=== PATIENT | female | born 1980 | race Caucasian/White ===

== ENCOUNTER 2017-09-25 09:05 | Outpatient (CLI) | payer OTHER ==
[2017-09-25 17:59] LABS: BASOPHILS # (AUTO) 0.1 10^3/uL (0.0-0.1); BASOPHILS % (AUTO) 1.6 %; EOSINOPHILS # (AUTO) 0.1 10^3/uL (0.0-0.7); HGB - HEMOGLOBIN 11.9 g/dL (12.0-16.0); LYMPHOCYTES # (AUTO) 1.8 10^3/uL (1.5-3.5); LYMPHOCYTES % (AUTO) 30.2 %; MEAN CORPUSCULAR HEMOGLOBIN 28.6 pg (27.0-31.0); MEAN CORPUSCULAR HGB CONC 32.4 g/dL (32.0-36.0); MEAN CORPUSCULAR VOLUME 88.2 fL (81.0-99.0); MEAN PLATELET VOLUME 9.2 fL (7.9-10.8); MONOCYTES # (AUTO) 0.4 10^3/uL (0.0-1.0); MONOCYTES % (AUTO) 6.4 %; NEUTROPHILS # (AUTO) 3.7 10^3/uL (1.5-6.6); NEUTROPHILS % (AUTO) 60.8 %; PLT - PLATELET COUNT 197 10^3/uL (130-450); RED BLOOD COUNT 4.18 10^6/uL (4.20-5.40); RED CELL DISTRIBUTION WIDTH 14.9 % (12.0-15.0); WHITE BLOOD COUNT 6.1 x10^3/uL (4.8-10.8)
[2017-09-25 18:24] LABS: T4 (THYROXINE) 7.15 ug/dL (6.09-12.23)
[2017-09-25 18:26] LABS: THYROID STIMULATING HORMONE 2.01 uIU/mL (0.34-5.60)
[2017-09-25 18:32] LABS: FERRITIN 22.2 ng/mL (11.0-306.8)
[2017-09-25 18:57] LABS: % IRON SATURATION 16 % (20-50); ALBUMIN 4.3 g/dL (3.2-5.5); ALBUMIN/GLOBULIN RATIO 1.5 (1.0-2.2); ALKALINE PHOSPHATASE 50 IU/L (42-121); ALT ALANINE AMINOTRANSFERASE 23 IU/L (10-60); AST ASPARTATE AMINOTRANSFERASE 22 IU/L (10-42); BILIRUBIN,TOTAL 2.1 mg/dL (0.2-1.0); BUN - BLOOD UREA NITROGEN 14 mg/dL (6-20); CALCIUM 8.7 mg/dL (8.5-10.3); CARBON DIOXIDE - CO2 28 mmol/L (21-32); CHLORIDE 104 mmol/L (101-111); CHOL/HDL RATIO 2.1 (<4.4); CHOLESTEROL 159 mg/dL; CREATININE 0.6 mg/dL (0.4-1.0); GFR - MDRD 114 (>89); GLUCOSE 90 mg/dL (70-100); HDL CHOLESTEROL 74 mg/dL; IRON 65 ug/dL (28-170); SODIUM 137 mmol/L (135-145); TOTAL IRON BINDING CAPACITY 395 ug/dL (250-450); TOTAL PROTEIN 7.1 g/dL (6.7-8.2); TRANSFERRIN 282 mg/dL (192-382)
[2017-09-25 19:47] LABS: LDL CHOLESTEROL,DIRECT 68 mg/dL; LDLD/HDL RATIO 0.9 (<4.4)
== END 2017-09-25 09:06 | disposition home or self-care (01) ==
LOC: LAB.F 09:05
PROVIDERS: ATTEND Nurse Practitioner Family
DX: Z00.00 Encounter for general adult medical examination without abnormal findings (principal); E55.9 Vitamin D deficiency, unspecified; E78.5 Hyperlipidemia, unspecified; N92.0 Excessive and frequent menstruation with regular cycle; R53.83 Other fatigue
CPT/HCPCS: 36415; 80053; 80061; 82306; 82728; 83540; 83721; 84436; 84443; 84466; 84481; 85025

== ENCOUNTER 2017-10-04 15:28 | Outpatient (CLI) | payer OTHER ==
--- NOTE | 2017-10-05 09:49 | Ultrasound Report ---
PELVIC ULTRASOUND: 10/04/2017 CLINICAL INDICATION: Menorrhagia, enlarged uterus on exam. TECHNIQUE: Transabdominal pelvic ultrasound performed for global evaluation. Transvaginal pelvic ultrasound performed for detailed evaluation. Real-time scanning performed and static images obtained. FINDINGS: The uterus is anteverted, measuring 9.2 x 5.4 x 4.2 cm. The endometrial echo complex measures 9 mm. No focal myometrial lesion is seen. The right ovary measures 3.0 x 2.7 x 1.7 cm, and demonstrates a follicle. The left ovary measures 2.5 x 1.7 x 0.9 cm, and appears unremarkable. No free fluid is present. IMPRESSION: NORMAL PELVIC ULTRASOUND. TD: 10/05/2017 09:48
== END 2017-10-04 15:29 | disposition home or self-care (01) ==
LOC: DI 15:28
PROVIDERS: ATTEND Nurse Practitioner Family
DX: N85.2 Hypertrophy of uterus (principal); N92.0 Excessive and frequent menstruation with regular cycle
CPT/HCPCS: 76830; 76856

== ENCOUNTER 2017-12-13 16:45 | Emergency (ER) | payer OTHER ==
[2017-12-13 17:14] LABS: BILIRUBIN,URINE NEGATIVE (NEGATIVE); GLUCOSE, URINE (UA) NEGATIVE (NEGATIVE); KETONES,URINE (UA) NEGATIVE (NEGATIVE); LEUKOCYTE ESTERASE, URINE NEGATIVE (NEGATIVE); NITRITE,URINE NEGATIVE (NEGATIVE); OCCULT BLOOD,URINE NEGATIVE (NEGATIVE); PROTEIN,URINE NEGATIVE (NEGATIVE); UROBILINOGEN,URINE 0.2 (NORMAL) E.U./dL (NORMAL)
[2017-12-13 17:18] LABS: CLARITY,URINE CLEAR (CLEAR); HCG UR QUAL POSITIVE
--- NOTE | 2017-12-13 19:23 | ED Physician Documentation ---
PD HPI FEMALE - Stated complaint Stated Complaint: SPOTTING/CRAMPING/10 WKS PREG - Chief complaint Chief Complaint: Abd Pain - History obtained from History obtained from: Patient - History of Present Illness Timing - onset: Today (started with spotting/mild bleeding vaginally with lower abd cramping today. Seen by her tool procurement coordinator, Keli Patel, and referred to ER for futher testing/ US.) Timing - duration: Days Timing - details: Abrupt onset, Still present, Waxing and waning Associated symptoms: Vaginal bleeding, Vaginal discharge (mild clear d/c for most all of the so far.). 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 denies: Nausea, Vomiting, Diarrhea : reports: Now EGA (10). denies: Dysuria, Frequency, Discharge Skin: denies: Rash, Lesions Neurologic: denies: Focal weakness, Near syncope, Altered mental status, Headache Endocrine: denies: Easy bruising / bleeding PD PAST MEDICAL HISTORY - Past Medical History Cardiovascular: None Respiratory: None Neuro: None Endocrine/Autoimmune: None - Present Medications Home Medications: Ambulatory Orders Medication Instructions Recorded Confirmed No Known Home Medications [No 12/13/17 12/13/17 Known Home Medications] - Allergies Allergies/Adverse Reactions: Allergies Allergy/AdvReac Type Severity Reaction Status Date / Time acetaminophen [From Vicodin] Allergy Mild Nausea Verified 12/13/17 16:54 hydrocodone [From Vicodin] Allergy Mild Nausea Verified 12/13/17 16:54 PD ED PE NORMAL - Vitals Vital signs reviewed: Yes - General General: Alert and oriented X 3, No acute distress, Well developed/nourished - Neck Neck: Supple, no meningeal sign, No adenopathy - Cardiac Cardiac: RRR, No murmur - Respiratory Respiratory: Clear bilaterally - Abdomen Abdomen: Normal bowel sounds, Soft, Non tender, Non distended, No organomegaly - Female Female : Deferred - Rectal Rectal: Deferred - Back Back: No CVA TTP - Derm Derm: Normal color - Extremities Extremities: No deformity, No tenderness to palpate, Normal ROM s pain, No edema , No calf tenderness / cord - Neuro Neuro: Alert and oriented X 3, No motor deficit, Normal speech Results - Vitals Vitals: Vital Signs - 24 hr 12/13/17 12/13/17 12/13/17 16:49 21:08 21:59 Temperature 36.6 C 37.2 C Heart Rate 71 69 70 Respiratory 16 18 14 Rate Blood Pressure 115/62 99/62 107/60 O2 Saturation 100 100 98 Oxygen O2 Source Room air - Labs Labs: Laboratory Tests 12/13/17 12/13/17 12/13/17 17:00 17:00 20:45 HCG, Quant 91477.00 Urine Color YELLOW Urine Clarity CLEAR Urine pH 6.0 Ur Specific Petty <=1.005 <=1.005 Urine Protein NEGATIVE Urine Glucose (UA) NEGATIVE Urine Ketones NEGATIVE Urine Occult Blood NEGATIVE Urine Nitrite NEGATIVE Urine Bilirubin NEGATIVE Urine Urobilinogen 0.2 (NORMAL) Ur Leukocyte Esterase NEGATIVE Ur Microscopic Review NOT INDICATED Urine Culture Comments NOT INDICATED Urine HCG, Qual POSITIVE - Rads (name of study) OB U/S Radiology: Prelim report reviewed (IUP with GS size c/w 7 weeks. No free fluid. No FHR seen.), EMP read contemporaneously PD MEDICAL DECISION MAKING - ED course Complexity details: reviewed results (bedside U/S by me shows IUP about 8 weeks size without obvious FHR. Will get formal U/S. Unfortunately this showed demise with 7 week size. UA is good. Blood type ordered. ), considered differential (concern for early vs incomplete miscarriage. ), d/w patient, d/w family (spouse) - Sepsis Event Vital Signs: Vital Signs - 24 hr 12/13/17 12/13/17 12/13/17 16:49 21:08 21:59 Temperature 36.6 C 37.2 C Heart Rate 71 69 70 Respiratory 16 18 14 Rate Blood Pressure 115/62 99/62 107/60 O2 Saturation 100 100 98 Oxygen O2 Source Room air Departure - Departure Disposition: 01 Home, Self Care Clinical Impression: demise, Incomplete miscarriage Condition: Stable Record reviewed to determine appropriate education?: Yes Instructions: ED Miscarriage Incom Follow-Up: Keli Patel LMW [Physician No Access] - Comments: Drink lots of fluids. Tylenol or ibuprofen if needed for cramps. Follow-up with Keli Patel regarding the next steps to take. One option is a bit more time to see if the miscarriage completes. Concerns would be infection. Other concerns would be cramping pain or inflammation resulting. Return if you have significant bleeding, significant pain, fevers, lightheadedness or other concerns. Otherwise there are methods to try to promote dilation of the cervix and completion of the miscarriage either with medications or with procedure. Discharge Date/Time: 12/13/17 22:02
--- NOTE | 2017-12-13 21:37 | Ultrasound Report ---
Procedure Date: 12/13/2017 Accession Number: [id number] / [id number] Procedure: US - OB First Trimester CPT Code: FULL RESULT: EXAM: FIRST TRIMESTER OBSTETRIC ULTRASOUND (LESS THAN 11 WEEKS). EXAM DATE: 12/13/2017 08:43 PM. CLINICAL HISTORY: 10 weeks , spotting/cramps. LMP: 10/05/2017, EGA 9 weeks 6 days, NIURKA 07/12/2018. COMPARISONS: None. TECHNIQUE: Transabdominal and transvaginal ultrasound examination with static image documentation. Findings: Gestational Sac: Single intrauterine. Mean gestational sac diameter: 29 mm = 7 weeks 5 days. Embryo: CRL (crown-rump length) 10 mm = 7 weeks 0 days. Cardiac activity: None, no cardiac activity is seen. Yolk sac: Round echogenic focus seen within the gestational sac measuring 3.8 mm, could represent a thickened yolk sac, abnormal in appearance. Amniotic fluid: Not accurately assessed at this gestational age. Early placenta: Not visible at this gestational age. Other: 4.4 mm perigestational bleed.. MATERNAL STRUCTURES: Uterus: Retroverted. Unremarkable. Cervix: Closed. Right Ovary/Adnexa: Unremarkable. The ovary measures 2.5 x 2 cm. Left Ovary/Adnexa: Unremarkable left ovary. The ovary measures 2.3 x 1.3 cm. Left adnexal varices. Free Fluid: None. IMPRESSION: 1. Embryo demise at 7 weeks and 0 days gestational age. No cardiac activity is seen. See above. RADIA
[2017-12-13 22:00] VITALS: BP 107/60
== END 2017-12-13 22:02 | disposition home or self-care (01) ==
LOC: ED 16:45
DX: O03.4 Incomplete spontaneous abortion without complication (principal)
CPT/HCPCS: 36415; 76801; 76817; 81001; 81003; 81025; 84702; 86900; 86901; 87086; 99283

== ENCOUNTER 2018-12-18 16:20 | Outpatient (CLI) | payer BC ==
--- NOTE | 2018-12-18 18:32 | Ultrasound Report ---
Reason: 1ST TRIMESTER DATING/VIABILITY Procedure Date: 12/18/2018 Accession Number: [id number] / [id number] Procedure: US - OB First Trimester CPT Code: FULL RESULT: EXAM: FIRST TRIMESTER OBSTETRIC ULTRASOUND (Less than 11 weeks) EXAM DATE: 12/18/2018 05:10 PM. CLINICAL HISTORY: 1ST TRIMESTER DATING/VIABILITY. LMP: 10/29/2018. COMPARISONS: None. TECHNIQUE: Transabdominal ultrasound examination with static image documentation. CLINICAL DATES: EGA 7 weeks 1 day with NIURKA 08/05/2019 based on LMP. ASSESSMENT: Gestational Sac: Single intrauterine. Mean gestational sac diameter: 2.5 mm = 7 weeks 4 days. Embryo: CRL (crown-rump length) 9.5 mm = 7 weeks 0 days. Cardiac activity: 153 beats per minute. Yolk sac: 3.5 mm. Amniotic fluid: Not accurately assessed at this gestational age. Early placenta: Not visible at this gestational age. Other: Small perigestational fluid collection measuring about 1.6 x 1.0 x 1.0 cm. MATERNAL STRUCTURES: Uterus: Anteverted. Unremarkable. Cervix: Closed. Right Ovary/Adnexa: The ovary measures not visible. Left Ovary/Adnexa: The ovary measures 3.2 x 1.3 x 3.2 cm, volume 7.1 cc. Unremarkable. Small corpus luteum cyst measuring 1.4 x 1.3 x 1.7 cm. Free Fluid: None. Other: None. IMPRESSION: 1. Single viable intrauterine at EGA 7 weeks 0 days with NIURKA 08/06/2019 based on crown-rump length, which is concordant with clinical dates. 2. Assigned dating is NIURKA 08/05/2019 based on LMP. 3. Small perigestational fluid collection. RADIA The above call report findings were discussed with Dr. Patel by Dr. Shaji Vale at 06:31 PM on 12/18/2018.
== END 2018-12-18 16:21 | disposition home or self-care (01) ==
LOC: DI 16:20
PROVIDERS: ATTEND Midwife
DX: Z34.91 Encounter for supervision of normal pregnancy, unspecified, first trimester (principal)
CPT/HCPCS: 76801

== ENCOUNTER 2019-03-20 14:19 | Outpatient (CLI) | payer BC ==
--- NOTE | 2019-03-25 09:54 | Ultrasound Report ---
Reason: ANATOMIC SURVEY Procedure Date: 03/20/2019 Accession Number: [id number] / [id number] Procedure: US - OB Detailed Eval CPT Code: FULL RESULT: EXAM: COMPLETE OBSTETRICAL ULTRASOUND EXAM DATE: 03/20/2019 05:00 PM. CLINICAL HISTORY: anatomic survey. COMPARISON: 12/18/2018. TECHNIQUE: Real-time sonographic evaluation of the fetus performed by the site monitor. Multiple jewelry sales representative static images were saved for review. Transabdominal imaging only. DATING: Established EGA 20 weeks 2 days with NIURKA 08/05/2019 based on last menstrual period. EGA 20 weeks 0 days with NIURKA 08/06/2019 based on prior ultrasound. EGA 20 weeks 2 days with NIURKA 08/05/2019 based on the current ultrasound. GENERAL EVALUATION [place] . Cardiac activity: 146 bpm. movement: Visualized. Presentation: Variable Placenta: Anterior position. No evidence for previa. Umbilical cord: 3 vessel cord. Central placental cord origin. Amniotic fluid: Subjectively normal. MVP 4.0 cm. BIOMETRY Bi-Parietal Diameter (BPD): 5.04 cm, 21 weeks 2 days Head Circumference (HC): 18.6 cm, 21 weeks 0 days Abdominal Circumference (AC): 14.7 cm, 20 weeks 0 days Femur Length (FL): 3.1 cm, 19 weeks 5 days Estimated Weight: 326 g, 30 percentile. ANATOMY The intracranial structures, profile, face/nose/lips, spine, 4 chamber heart and outflow tracts, stomach, abdominal wall and cord insertion, diaphragm, kidneys, bladder, and extremities were visualized and demonstrate no abnormality. MATERNAL STRUCTURES Uterus: Unremarkable. Cervix: Long and closed. Transabdominal length 4.3 cm. Right ovary/adnexa: Unremarkable. Left ovary/adnexa: Unremarkable. Free fluid: None. IMPRESSION: 1. [place] live intrauterine with gestational age 20 weeks 2 days based on current ultrasound. 2. Estimated weight is within expected limits for assigned dating. 3. Normal anatomic survey. No anatomic abnormalities are detected at this time. RADIA ADDENDUM: 03/26/19 15:58 There was a typographical error in the initial report. In regards to ANATOMY, the following structures were not well visualized: Nuchal fold, face, nose/lips, and both lower extremities. Consider follow-up obstetrical ultrasound at clinically appropriate interval.
== END 2019-03-20 14:20 | disposition home or self-care (01) ==
LOC: DI 14:19
PROVIDERS: ATTEND Midwife
DX: Z34.92 Encounter for supervision of normal pregnancy, unspecified, second trimester (principal)
CPT/HCPCS: 76811

== ENCOUNTER 2020-07-28 13:40 | Outpatient (CLI) | payer BC ==
[2020-07-28 20:11] LABS: BASOPHILS # (AUTO) 0.1 10^3/uL (0.0-0.1); BASOPHILS % (AUTO) 0.7 %; EOSINOPHILS # (AUTO) 0.1 10^3/uL (0.0-0.7); EOSINOPHILS % (AUTO) 1.3 %; HGB - HEMOGLOBIN 13.1 g/dL (12.0-16.0); LYMPHOCYTES # (AUTO) 1.9 10^3/uL (1.5-3.5); LYMPHOCYTES % (AUTO) 28.4 %; MEAN CORPUSCULAR HEMOGLOBIN 30.7 pg (27.0-31.0); MEAN CORPUSCULAR HGB CONC 31.9 g/dL (32.0-36.0); MEAN CORPUSCULAR VOLUME 96.3 fL (81.0-99.0); MEAN PLATELET VOLUME 11.2 fL (7.9-10.8); MONOCYTES # (AUTO) 0.4 10^3/uL (0.0-1.0); MONOCYTES % (AUTO) 5.9 %; NEUTROPHILS # (AUTO) 4.3 10^3/uL (1.5-6.6); NEUTROPHILS % (AUTO) 63.6 %; PLT - PLATELET COUNT 186 10^3/uL (130-450); RED BLOOD COUNT 4.27 10^6/uL (4.20-5.40); RED CELL DISTRIBUTION WIDTH 12.6 % (12.0-15.0); WHITE BLOOD COUNT 6.8 x10^3/uL (4.8-10.8)
[2020-07-28 20:54] LABS: ALBUMIN 4.6 g/dL (3.2-5.5); ALBUMIN/GLOBULIN RATIO 1.7 (1.0-2.2); ALKALINE PHOSPHATASE 69 IU/L (42-121); ALT ALANINE AMINOTRANSFERASE 16 IU/L (10-60); AST ASPARTATE AMINOTRANSFERASE 16 IU/L (10-42); BILIRUBIN,TOTAL 2.3 mg/dL (0.2-1.0); BUN - BLOOD UREA NITROGEN 16 mg/dL (6-20); CALCIUM 9.3 mg/dL (8.5-10.3); CARBON DIOXIDE - CO2 26 mmol/L (21-32); CHLORIDE 103 mmol/L (101-111); CHOL/HDL RATIO 2.2 (<4.4); CHOLESTEROL 191 mg/dL; CREATININE 0.6 mg/dL (0.4-1.0); GLUCOSE 84 mg/dL (70-100); HDL CHOLESTEROL 87 mg/dL; TOTAL PROTEIN 7.3 g/dL (6.7-8.2)
== END 2020-07-28 13:41 | disposition home or self-care (01) ==
LOC: LAB.S 13:40
PROVIDERS: ATTEND Nurse Practitioner Family
DX: Z00.00 Encounter for general adult medical examination without abnormal findings (principal); E55.9 Vitamin D deficiency, unspecified; E78.5 Hyperlipidemia, unspecified; H00.011 Hordeolum externum right upper eyelid
CPT/HCPCS: 36415; 80053; 80061; 82306; 82728; 83721; 85025

== ENCOUNTER 2024-01-22 10:51 | Outpatient (CLI) | payer OTHER ==
--- NOTE | 2024-01-23 10:16 | Mammography Report ---
BILATERAL FIRST EVER DIGITAL SCREENING MAMMOGRAM 3D/2D WITH EXAGGERATED CC: 01/22/2024 CLINICAL: Baseline exam. Routine screening. No prior exams were available for comparison. Both breasts are heterogeneously dense, which may obscure small masses (category c / 51-75% glandular tissue). There is a focal asymmetry in the left breast at 1 o'clock posterior depth. No other significant masses, calcifications, or other findings are seen in either breast. IMPRESSION: INCOMPLETE: NEEDS ADDITIONAL IMAGING EVALUATION The focal asymmetry in the left breast is indeterminate. Additional views with possible ultrasound a re recommended. Based on the Tyrer Cuzick model (a risk assessment model) the patient's lifetime risk is 14.5% and he r 10 year risk is 2.2%. According to the ACR, ACS, and NCCN guidelines, an annual breast MRI exam deven ng with mammogram is recommended if the patient's lifetime risk is 20% or greater. This exam was interpreted at Station ID: [id number]. NOTE: For mammograms, a report in lay terms will be sent to the patient. Approximately 15% of breast malignancies will not be visualized mammographically. In the management of a palpable breast mass, a negative mammogram must not discourage biopsy of a clinically suspicious lesion. Electronically Signed By: Clay Moreno M.D. lc/:01/22/2024 12:05:12 ACR BI-RADS Category 0: Incomplete 3340F PARENCHYMAL PATTERN: (D) - The breast(s) demonstrate(s) heterogeneously dense fibroglandular parenchy ma. BI-RADS CATEGORY: (0) - 0 Mammo and [place] [id number] Immediate follow-up LATERALITY: (B)
== END 2024-01-22 10:52 | disposition home or self-care (01) ==
LOC: DI.S 10:51
DX: Z12.31 Encounter for screening mammogram for malignant neoplasm of breast (principal); R92.8 Other abnormal and inconclusive findings on diagnostic imaging of breast; R92.333 Mammographic heterogeneous density, bilateral breasts

== ENCOUNTER 2024-02-08 12:18 | Outpatient (CLI) | payer OTHER ==
--- NOTE | 2024-02-09 09:11 | Mammography Report ---
UNILATERAL LEFT DIGITAL DIAGNOSTIC MAMMOGRAM 3D/2D WITH SPOT COMPRESSION: 02/08/2024 CLINICAL: Patient returns today to evaluate a focal asymmetry in the left breast. Comparison is made to exam dated: 01/22/2024 mammogram - [facility]. The left breast is heterogeneously dense, which may obscure small masses (category c / 51-75% glandul ar tissue). There is an oval focal asymmetry with a circumscribed margin in the left breast at 2 o'clock posterio r depth. This is seen in additional views. No other significant masses or calcifications are seen in the breast. IMPRESSION: INCOMPLETE: NEEDS ADDITIONAL IMAGING EVALUATION The oval focal asymmetry in the left breast is indeterminate. An ultrasound is recommended. Based on the Tyrer Cuzick model (a risk assessment model) the patient's lifetime risk is 15.0% and he r 10 year risk is 2.3%. According to the ACR, ACS, and NCCN guidelines, an annual breast MRI exam deven ng with mammogram is recommended if the patient's lifetime risk is 20% or greater. This exam was interpreted at Station ID: [id number]. NOTE: For mammograms, a report in lay terms will be sent to the patient. Approximately 15% of breast malignancies will not be visualized mammographically. In the management of a palpable breast mass, a negative mammogram must not discourage biopsy of a clinically suspicious lesion. Electronically Signed By: Khang dickson/ubaldo:02/08/2024 13:29:17 ACR BI-RADS Category 0: Incomplete 3340F PARENCHYMAL PATTERN: (D) - The breast(s) demonstrate(s) heterogeneously dense fibroglandular efrain kraus. BI-RADS CATEGORY: (0) - 0 Ultrasound [id number] Immediate follow-up LATERALITY: (L)
--- NOTE | 2024-02-09 09:11 | Ultrasound Report ---
LIMITED ULTRASOUND OF LEFT BREAST: 02/08/2024 CLINICAL: Patient returns today to evaluate a focal asymmetry in the left breast. Comparison is made to exams dated: 02/08/2024 mammogram and 01/22/2024 mammogram - [facility]. Color flow and real-time ultrasound of the left breast 2 o'clock region were performed. Arrieta scale images of the real-time examination were reviewed. There is a benign 0.4 cm x 0.4 cm x 0.2 cm oval cyst with a smooth internal wall within the skin of t he left breast at 2 o'clock 9 cm from the nipple. This correlates with mammography findings. IMPRESSION: BENIGN There is no sonographic evidence of malignancy. The 0.4 cm x 0.4 cm x 0.2 cm oval cyst within the skin of the left breast is benign. Return to annual mammogram screening schedule is recommended. This exam was interpreted at Station ID: [id number]. Electronically Signed By: Khang dickson/ubaldo:02/08/2024 13:30:44 letter sent: No_Letter Ultrasound BI-RADS: 2 Benign BI-RADS CATEGORY: (2) - 2 Mammogram [id number] return to screening LATERALITY: (B)
== END 2024-02-08 12:19 | disposition home or self-care (01) ==
LOC: DI 12:18
PROVIDERS: ATTEND Registered Nurse
DX: N60.02 Solitary cyst of left breast (principal); R92.332 Mammographic heterogeneous density, left breast